=== PATIENT | male | born 1975 | race Caucasian/White ===

== ENCOUNTER 2025-08-05 07:12 | Day surgery (SDC) | payer OTHER ==
[2025-08-05 11:38] VITALS: BMI 29.9
[2025-08-05 11:51] VITALS: RESP 16; TEMP 97.7
[2025-08-05] MEDS ORDERED: LIDOCAINE HCL 1%, 10 MG/ML (20ML VIAL) ONE (12:45)
[2025-08-05] MEDS ORDERED: LIDOCAINE 1%/EPI 1:100000 (20 ML MULTI DOSE VIAL) ONE (12:45)
[2025-08-05] MEDS ORDERED: LIDOCAINE HCL/PF 2% SDV 5ML VIAL ONE (12:57)
[2025-08-05] MEDS ORDERED: MIDAZOLAM HCL 2 MG/2 ML SINGLE DOSE VIAL ONE (12:57)
[2025-08-05] MEDS ORDERED: PROPOFOL 40 ML ONE (12:57)
[2025-08-05] MEDS: LIDOCAINE 1%/EPI 1:100000 (20 ML MULTI DOSE VIAL) INF ONE (13:46)
[2025-08-05] MEDS ORDERED: ACETAMINOPHEN 325 MG TABLET (FP) PO PRN (14:24)
[2025-08-05 14:26] VITALS: BP 152/70; PULSE 67
== END 2025-08-05 14:50 | disposition home or self-care (01) ==
LOC: JASU-SURG 07:12
PROVIDERS: ATTEND Surgery
PROC: 0JBF0ZZ Excision of Left Upper Arm Subcutaneous Tissue and Fascia, Open Approach (ICD-10-PCS; principal; 2025-08-05 13:30)
DX: D17.1 Benign lipomatous neoplasm of skin and subcutaneous tissue of trunk (principal)
CPT/HCPCS: 88304-TC